=== PATIENT | male | born 2000 | race Caucasian/White ===

== ENCOUNTER 2025-04-20 19:26 | Emergency (ER) | payer OTHER, SELFPAY ==
[2025-04-20 19:28] VITALS: BP 127/71
--- NOTE | 2025-04-20 23:00 | ED.GENMED ---
History of Present Illness
General
Chief Complaint: Visual Problem
Source: patient
Exam Limitations: none
Time Seen by Provider: 04/20/25 22:55
History of Present Illness
History of Present Illness:
Note:
CHIEF COMPLAINT(S)
Blurry vision in the right eye following an injury with a strap.
HISTORY OF PRESENT ILLNESS
The patient is a 24 y/o male with no pmh who presents to the ER today with concerns of blurry vision in the right eye, which occurred after an accidental injury with a strap of a ratchet at around 4 PM today. The patient was rolling up a strap when
it swung around and struck the eye. Initially, the patient experienced a sensation similar to having a film over the eye. The blurriness has mostly subsided now, although there is still a minor lingering effect. The patient reports no pain currently
and does not feel any foreign body sensation in the eye. The patient denies any prior eye problems and has never seen an bean snapper. There are no associated symptoms of nausea or head trauma reported, and the incident was described as the strap
hitting the eye without excessive force. He denies any other injury. He denies any chemical injury to the eye.
PHYSICAL EXAM
General: Patient is well appearing and in no acute distress; non-toxic
Skin: Warm and dry, no rashes or lesions
Head: Normocephalic, atraumatic
Eyes: Sclera non-icteric. EOMs intact. No sclera injection. Fluorescein staining reveals a small 2 mm corneal abrasion to the lateral aspect of the right cornea. No intraocular foreign body. No foreign body within the eyelids. Peripheral visual
peacock intact. Visual acquity intact.
Cardiac: Regular rate
Pulm: Normal respiratory effort
Neuro: CN II-XII intact, no focal neurologic deficits.
Psychiatric: Appropriate mood and affect.
PROBLEM LIST
Acute Problems:
- Blurry vision in right eye due to strap injury
- Small corneal abrasion on the right eye
PLAN
- Treat with antibiotic eye drops.
- Recommend [id number] analgesics like Tylenol or Motrin for any discomfort.
- Instructed the patient to follow up with an bean snapper for full eye exam especially if symptoms persist beyond one to two weeks, or if there are any changes in vision, persistent blurriness, or onset of headache etc.
- Prescription sent to patient�s pharmacy.
DISPOSITION
Patient presents emergency department today with concerns of blurry vision. This is since resolved. Physical exam reveals a small corneal abrasion. He was given a prescription for antibiotic drops and given follow-up for ophthalmology. He denies
any other injuries. He denies any chemical exposure to the eye. No evidence of corneal ulcer or decreased visual acuity on exam. Patient stable for discharge.
DIFFERENTIAL DIAGNOSIS
The Differential Diagnosis includes, in no particular order and is not limited to:
1. Corneal abrasion
2. Foreign body in the eye
3. Conjunctivitis
4. Corneal ulcer
5. Eye strain
6. Retinal detachment
7. Acute glaucoma
8. Ocular migraine
9. Optic neuritis
10. Uveitis
Review of Systems
Review of Systems
All Other Systems: ROS reviewed and negative except as documented in HPI and ROS
Phy Exam
Physical Exam
Physical Exam:
See HPI
Course
Orders/Labs/Results
Orders:
Orders
04/20/25 22:55
Visual Acuity- Treatment ONCE
04/20/25 23:28
Purified Water Eye Wash [Dacriose Eye Wash Solution] 120 ml .ROUTE .STK-MED ONE
04/20/25 23:29
Fluorescein Sodium [Ful-Francisca] 4 mg .ROUTE .STK-MED ONE
Tetracaine HCl [Tetracaine 0.5% Ophthalmic Solution] 1 drop .ROUTE .STK-MED ONE
Vital Signs
Initial and Last Documented VS:
Initial Vital Signs
Temp Pulse BP Pulse Ox
98.5 F 76 127/71 97
04/20/25 19:28 04/20/25 19:28 04/20/25 19:28 04/20/25 19:28
Last Documented Vital Signs
Temp Pulse BP Pulse Ox
98.5 F 76 127/71 97
04/20/25 19:28 04/20/25 19:28 04/20/25 19:28 04/20/25 19:28
MDM/Problems Addressed
Differential Diagnosis Includes:
see HPI
MDM/Problems Addressed:
see HPI
Chronic conditions affecting care:
see HPI
*Pulse Oximetry
Patient hypoxic: no
*Critical Care Note
Total Time (30-74mins, 75-104mins- exclusive of procedures): Not Applicable
Data Reviewed
Review of Other/Old Records Reveals: Records (Reviewed ER physician documentation from 04/02/2016 patient seen for pain in the right hip unable to bear weight had unremarkable workup and was discharged)
Source: patient
ED Attending Note
-
Portions of this chart may have been created with voice recognition software.� Occasional wrong word or��sound alike� substitutions may have occurred due to the inherent limitations of voice recognition software.
Discharge Plan
Departure
Patient Disposition: Home (Routine Discharge)
Date of Disposition: 04/20/25
Time of Disposition: 23:19
Patient with high blood pressure during this ER visit?: Yes
Condition: Good
Discharge Problem:
Corneal abrasion, right
Instructions: Corneal abrasion - ED discharge instructions, BLOOD PRESSURE
Prescriptions:
New
ofloxacin 0.3 % drops
1 drp ophthalmic (eye) QID 5 Days Qty: 10 0RF
Referrals:
Narinder Oshea MD [Active, Ophthalmology] - Call in 1-3 days for appt
NONE,* [Family Provider, Internal Medicine]
Activity Restrictions/Additional Instructions:
Antibiotic eyedrops have been sent to your pharmacy. Please instill 2 drops into the right eye 4 times daily for 5 days. Please continue to monitor your symptoms.
PLEASE RETURN EMERGENCY DEPARTMENT SHOULD YOU DEVELOP VISUAL LOSS, ACUTE WORSENING OF YOUR SYMPTOMS, INTRACTABLE NAUSEA OR VOMITING, HEADACHES OR NECK PAIN, PERSISTENT PAIN, OR ANY OTHER SIGNS OR SYMPTOMS WORRISOME TO YOU.
Interventions
Interventions:
*Risk Screen - Suicide Last Done: 04/20/25 19:36
*General Assessment Last Done: 04/20/25 19:36
*Neglect/Abuse Screening Last Done: 04/20/25 19:36
*ED- Fall Risk Assessment Last Done: 04/20/25 23:20
*Nursing Disposition Last Done: 04/21/25 00:10
ED- Neurological Assessment Last Done: 04/20/25 23:20
ED-EENT Assessment Last Done: 04/20/25 23:20
ED Swallowing Screen Last Done: 04/20/25 23:20
Discharge Date and Time
Discharge Date/Time: 04/21/25 00:10
Print Language: PORTUGUESE
== END 2025-04-21 00:10 | disposition home or self-care (01) ==
LOC: EMR 19:26
PROVIDERS: EMERGENCY PHYSICIAN Emergency Medicine
DX: S05.01XA Injury of conjunctiva and corneal abrasion without foreign body, right eye, initial encounter (principal); W22.8XXA Striking against or struck by other objects, initial encounter
CPT/HCPCS: 99283